=== PATIENT | male | born 1950 | race Caucasian/White ===

== ENCOUNTER → 2020-08-17 | Outpatient (CLI) | payer OTHER, MEDICARE | LOC: RAD 09:47 | PROVIDERS: ATTEND Nurse Practitioner | DX: M25.78 Osteophyte, vertebrae (principal); M62.830 Muscle spasm of back ==

== ENCOUNTER → 2020-09-08 | Outpatient (CLI) | payer OTHER, MEDICARE | LOC: RAD 14:19 | PROVIDERS: ATTEND Neuromusculoskeletal Medicine & OMM | DX: M47.816 Spondylosis without myelopathy or radiculopathy, lumbar region (principal); M48.061 Spinal stenosis, lumbar region without neurogenic claudication; M43.8X6 Other specified deforming dorsopathies, lumbar region; M54.18 Radiculopathy, sacral and sacrococcygeal region ==

== ENCOUNTER → 2020-11-03 | Outpatient (CLI) | payer OTHER, MEDICARE ==
[~2020-11-03] VITALS: Ht 170.2 cm; Wt 78.9 kg
[~2020-11-03] MED LIST: ADVIL200 M3 PO; ASA81BEC PO; CALCIUM + VITA1 EAC2 PO; CENTRUM SILVER1 EAC7 PO; CLARINEX5 MG PO; COQ-10100 MG PO; HYDROCODON-ACE1 EAC7 PO; OLUX100 GM TOP; OMEGA-31000 M1 PO; PAXIL10 MG PO; PROBIOTIC 2 BI1 EACH PO; ROSUVASTATIN CA10 MG PO; TRIAMCINOLONE TOP; VITAMIN D PO; ZANAFLEX4 M2 PO; [UNRECOGNIZED DRUG - OTHER] PO
[2020-11-03 08:50] VITALS: BP 98/70
--- NOTE | 2020-11-03 09:15 | NUR ---
Pain Clinic Assessment: 1. History of Osteoarthritis: Not Applicable History of Rheumatoid Arthritis: Not Applicable 2. Height: 5 ft. 7 in. 170.2 cm. Weight: 174.0 lb. oz. 78.926 kg. Patient's BMI: 27.2 3. Vital Signs: BP: 98/70 Pulse: 75 Resp: 16 Temp: 02 Sat: 98 ECG Mon: 4. Pain Intensity: 6 5. Fall Risk: Dizziness: N Needs help standing or walking: N Fallen in the last 3 months: N Fall risk comments: 6. Patient on Blood Thinner: None 7. History of Hypertension: N 8. Opioid Therapy greater than 6 weeks: N Opiate Contract Signed: 9. Risk Assessment Tool Provided: MODERATE 10. Functional Assessment Tool: 49/70 11. Recreational Drug Use: Past greater than 3 mos Drug Type: MARIJUANIA Tobacco Use: Never Smoker Tobacco Type: Amount or Packs/day: How Many Years: Alcohol Use: Yes Frequency: Daily Quant: 2-3
== END ==
LOC: PAIN 07:00
PROVIDERS: ATTEND Anesthesiology Pain Medicine
DX: M47.26 Other spondylosis with radiculopathy, lumbar region (principal); E78.5 Hyperlipidemia, unspecified; F12.90 Cannabis use, unspecified, uncomplicated; Z72.89 Other problems related to lifestyle; Z79.899 Other long term (current) drug therapy; Z79.82 Long term (current) use of aspirin

== ENCOUNTER → 2020-11-08 | Outpatient (CLI) | payer OTHER, MEDICARE ==
[~2020-11-08] VITALS: Ht 170.2 cm; Wt 78.9 kg
[2020-11-08 09:03] VITALS: BP 122/75
--- NOTE | 2020-11-08 09:18 | NUR ---
Pain Clinic Assessment: 1. History of Osteoarthritis: Not Applicable History of Rheumatoid Arthritis: Not Applicable 2. Height: 5 ft. 7 in. 170.2 cm. Weight: 174.0 lb. oz. 78.926 kg. Patient's BMI: 27.2 3. Vital Signs: BP: 122/75 Pulse: 84 Resp: 16 Temp: 02 Sat: 97 ECG Mon: 4. Pain Intensity: 6 5. Fall Risk: Dizziness: N Needs help standing or walking: N Fallen in the last 3 months: N Fall risk comments: 6. Patient on Blood Thinner: None 7. History of Hypertension: N 8. Opioid Therapy greater than 6 weeks: N Opiate Contract Signed: 9. Risk Assessment Tool Provided: MODERATE 10. Functional Assessment Tool: 49/70 11. Recreational Drug Use: Past greater than 3 mos Drug Type: Tobacco Use: Never Smoker Tobacco Type: Amount or Packs/day: How Many Years: Alcohol Use: Yes Frequency: Daily Quant: 2 WINE
== END | disposition home or self-care (01) ==
LOC: PAIN 06:55
PROVIDERS: ATTEND Anesthesiology Pain Medicine
DX: M54.16 Radiculopathy, lumbar region (principal); G89.29 Other chronic pain; E78.5 Hyperlipidemia, unspecified; Z98.890 Other specified postprocedural states; Z79.899 Other long term (current) drug therapy

== ENCOUNTER → 2020-12-06 | Outpatient (CLI) | payer OTHER, MEDICARE ==
[~2020-12-06] VITALS: Ht 170.2 cm; Wt 77.4 kg
[2020-12-06 09:42] VITALS: BP 131/73
--- NOTE | 2020-12-06 09:47 | NUR ---
Pain Clinic Assessment: 1. History of Osteoarthritis: Not Applicable History of Rheumatoid Arthritis: Not Applicable 2. Height: 5 ft. 7 in. 170.2 cm. Weight: 170.6 lb. oz. 77.384 kg. Patient's BMI: 26.7 3. Vital Signs: BP: 131/73 Pulse: 83 Resp: 16 Temp: 02 Sat: 97 ECG Mon: 4. Pain Intensity: 6 5. Fall Risk: Dizziness: N Needs help standing or walking: N Fallen in the last 3 months: N Fall risk comments: 6. Patient on Blood Thinner: None 7. History of Hypertension: N 8. Opioid Therapy greater than 6 weeks: N Opiate Contract Signed: 9. Risk Assessment Tool Provided: MODERATE 10. Functional Assessment Tool: 49/70 11. Recreational Drug Use: Past greater than 3 mos Drug Type: Tobacco Use: Never Smoker Tobacco Type: Amount or Packs/day: How Many Years: Alcohol Use: Yes Frequency: Daily Quant: 2
== END | disposition home or self-care (01) ==
LOC: PAIN 09:03
PROVIDERS: ATTEND Anesthesiology Pain Medicine
DX: M51.16 Intervertebral disc disorders with radiculopathy, lumbar region (principal); M48.061 Spinal stenosis, lumbar region without neurogenic claudication; G89.29 Other chronic pain; E78.5 Hyperlipidemia, unspecified; Z98.890 Other specified postprocedural states; Z79.899 Other long term (current) drug therapy; Z79.82 Long term (current) use of aspirin

== ENCOUNTER → 2021-01-03 | Outpatient (CLI) | payer OTHER, MEDICARE ==
[~2021-01-03] VITALS: Ht 170.2 cm; Wt 77.1 kg
[2021-01-03 10:19] VITALS: BP 129/73
--- NOTE | 2021-01-03 10:33 | NUR ---
Pain Clinic Assessment: 1. History of Osteoarthritis: Not Applicable History of Rheumatoid Arthritis: Not Applicable 2. Height: 5 ft. 7 in. 170.2 cm. Weight: 170.0 lb. oz. 77.112 kg. Patient's BMI: 26.6 3. Vital Signs: BP: 129/73 Pulse: 79 Resp: 14 Temp: 02 Sat: 97 ECG Mon: 4. Pain Intensity: 4 5. Fall Risk: Dizziness: N Needs help standing or walking: N Fallen in the last 3 months: N Fall risk comments: 6. Patient on Blood Thinner: None 7. History of Hypertension: N 8. Opioid Therapy greater than 6 weeks: N Opiate Contract Signed: 9. Risk Assessment Tool Provided: MODERATE 10. Functional Assessment Tool: 49/70 11. Recreational Drug Use: Past greater than 3 mos Drug Type: Tobacco Use: Never Smoker Tobacco Type: Amount or Packs/day: How Many Years: Alcohol Use: Yes Frequency: Quant:
== END | disposition home or self-care (01) ==
LOC: PAIN 08:55
PROVIDERS: ATTEND Anesthesiology Pain Medicine
DX: M54.16 Radiculopathy, lumbar region (principal); G89.29 Other chronic pain; E78.5 Hyperlipidemia, unspecified; Z98.890 Other specified postprocedural states; Z79.899 Other long term (current) drug therapy; Z79.82 Long term (current) use of aspirin